=== PATIENT | female | born 1975 | race Two or more races ===

== ENCOUNTER 2025-02-15 06:44 | Day surgery (SDC) | payer MEDICAID ==
--- NOTE | 2025-02-10 12:12 | ELECTROCARDIOGRAPH REPORT ---
[facility] Date: 2025-02-10 Test Time: 12:10:40 Pat Name: ORA COOPER Department: [facility]-PRE-OP Patient ID: [facility]-[id number] Room: Gender: F Hotel Maintenance Worker: : 1975 Requested By: COSTA ZAMORA Order Number: [id number] Reading MD: Dr. CHANTELL Fuentes Measurements Intervals [place] Rate: 71 P: 36 IN: 138 QRS: 61 QRSD: 84 T: 33 QT: 373 QTc: 406 Interpretive Statements Sinus rhythm Electronically Signed On 02-10-2025 16:02:[address] CHANTELL Fuentes Please click the below link to view image of tracing.
[2025-02-10 12:33] LABS: MEAN PLATELET VOLUME 8.2 FL (7.4-10.4); PRE OP HEMATOCRIT 39.4 % (35.0-45.0); PRE OP HEMOGLOBIN 13.4 g/dL (12.0-16.0); PRE OP PLATELET COUNT 268 X10'3 (140-440); PRE OP WHITE BLOOD COUNT 5.4 10'3 (4.8-10.8); RED CELL DISTRIBUTION WIDTH 12.6 % (11.5-14.5)
[2025-02-10 12:44] LABS: CREATININE 0.62 MG/DL (0.40-0.90); PRE OP ALT 26 U/L (30-65); PRE OP ANION GAP 4 (8-16); PRE OP AST 13 U/L (10-37); PRE OP BILIRUB, TOTAL 0.6 MG/DL (0.0-1.0); PRE OP GLUCOSE 94 MG/DL (70-104); PRE OP POTASSIUM 3.9 MMOL/L (3.4-5.1); PRE OP SODIUM 141 MMOL/L (135-145); TOTAL CARBON DIOXIDE 29.8 MMOL/L (24-32); eGFR > 90 ML/MIN
[~2025-02-15] VITALS: Ht 157.5 cm; Wt 66.4 kg
[2025-02-15] VITALS (10 sets, daily range): BP systolic 136–163; BP diastolic 80–94; PULSE 72–105; RESP 10–17; TEMP 97.4; O2SAT 96–100
[2025-02-15] MEDS: ceFAZolin 2gm/dext,iso 50mL 50 ML IV ONE (05:30)
[~2025-02-15 06:44] MED LIST: CETI10CA PO; LORA-268 PO; OMEP40CA21 PO
[2025-02-15] MEDS ORDERED: LIDOcaine 1% 30ml preserv. free vial ONE (07:05)
[2025-02-15] MEDS ORDERED: BUPIVAcaine 2.5mg/ml inj 50ml vial (contains preservative) ONE (07:06)
[2025-02-15] MEDS ORDERED: methylene blue (5mg/ml) 50mg/10ml ampul IV ONE (07:07)
[2025-02-15] MEDS ORDERED: BUPIVACAINE liposomal/PF 13.3 MG/ML 10mL vial IM ONE (07:07)
[2025-02-15] MEDS: ringers solution, lacted 1,000 ML IV SCH (07:22)
[2025-02-15] MEDS ORDERED: BUPIVAcaine/PF 2.5mg/ml (0.25%) 10ml vial ONE (07:25)
[2025-02-15] MEDS ORDERED: midazolam 1 mg/ML 2ml injection ONE (08:29)
[2025-02-15] MEDS ORDERED: fentaNYL /PF 50mcg/ml 5ml ampule ONE (08:29)
[2025-02-15] MEDS ORDERED: labetalol 20mg/4ml (5mg/ml) syringe IV PRN (08:35)
[2025-02-15] MEDS ORDERED: ringers solution, lacted 1,000 ML IV SCH (08:35)
[2025-02-15] MEDS ORDERED: HYDROmorphone/PF 0.2 MG/ML SYRINGE IV PRN ×2 (08:35)
[2025-02-15] MEDS ORDERED: hydrALAZINE 20mg/ml inj. IV PRN (08:35)
[2025-02-15] MEDS ORDERED: LIDOcaine 2% (20mg/ml) 5ml vial ONE (08:53)
[2025-02-15] MEDS ORDERED: dexamethasone sod phosphate 4mg/ml inj. ONE (08:53)
[2025-02-15] MEDS ORDERED: ePHEDrine 50MG/ML INJ. ONE (08:53)
[2025-02-15] MEDS ORDERED: ondansetron/PF 4mg/2ml inj ONE (08:53)
[2025-02-15] MEDS ORDERED: 0.9 % SODIUM CHLORIDE 10 ML VIAL ONE (08:53)
[2025-02-15] MEDS ORDERED: propofol inj 20 ML IV ONE (08:54)
[2025-02-15] MEDS: methylene blue (5mg/ml) 50mg/10ml ampul IV ONE (10:30)
[2025-02-15] MEDS: LIDOcaine 1% 30ml preserv. free vial IJ ONE (10:30)
[2025-02-15] MEDS: BUPIVAcaine/PF 2.5mg/ml (0.25%) 10ml vial IJ ONE (10:31)
[2025-02-15] MEDS: BUPIVACAINE liposomal/PF 13.3 MG/ML 10mL vial IM ONE (10:31)
[2025-02-15] MEDS: morphine 4 MG/ML inj SYRINge IV PRN (10:41)
--- NOTE | 2025-02-15 10:47 | OPERATIVE REPORT ---
Operative Report Providers to CC: COSTA ZAMORA DO ~ Date of Procedure: Feb 15, 2025 Pre-Operative Diagnosis: Left breast ductal carcinoma in Situ Post-Operative Diagnosis SAME as PRE-Op Procedure Performed 1.Left breast wireless (pintuition) localized lumpectomy 2.left axillary sentinel lymph node biopsy 3. Reading of specimen radiograph Surgeon: Dr. Costa Zamora [employer] technical sales support manager Anesthesiologist: Guerline Alexander Type of Anesthesia: General Findings: Left breast with two markers identified on the specimen radiograph, the marker and tracker and two axillary sentinel lymph nodes Complications None Prosthetics\Implants used: None Estimated Blood Loss: Less than 15 mL Specimen Removed: 1. Left breast wireless localized lumpectomy suture marked short superior, long lateral, double deep 2. Left axillary sentinel lymph node #1 Hot and blue 1402 3. Left axillary sentinel lymph node #2. Hot and blue 677 Description of Procedure: Georgina is a 50-year-old female who was diagnosed with ductal carcinoma in Situ with an associated mass. She was seen and evaluated by myself in the office. She was referred by Dr. Ok Francisco. She had a suspicious lymph node for which an ultrasound-guided core needle biopsy revealed a benign node. We decided to move forward with a sentinel lymph node biopsy because she had an associated mass with a ductal carcinoma in Situ diagnosis. Informed consent was obtained. She had the nuclear medicine injection yesterday evening. She was seen and evaluated in the preoperative holding area by myself and the anesthesiologist. I marked the left breast with my initials. She was taken to the OR and placed on the table in supine position with the arms extended. He had an IV in place, SCDs to lower extremities, and antibiotics hanging at the bedside administered prior to the cut of surgery. General anesthesia was administered with an LMA. I scanned the left breast with the pintuition probe and marked the upper outer quadrant with my marking pen. The tumor is located between 12 30 and 1:00 4 cm from the nipple. I scanned the breast and the axilla and a hot signal was noted in the axillary space and I also marked at with the marking pen. A time-out was performed and agreed upon. 1% lidocaine was injected at both proposed incision sites of the breast and left axilla. My incision was made with a 10 blade just inferior to the marked site. I extended into the deep dermal layer with the cutting on the cautery. Mckenna retractors were placed on the edges of the incision as I dissected deep to the anterior flap. The probe was used to identify the signal and guide my dissection. During my dissection I used the probe to guide the dissection c ircumferentially and around the signal. I excised the deep margin and at some point there was visible implant without any damage. The specimen was removed and oriented with short stitch superior, long suture lateral, double suture deep. It was placed in the specimen radiograph and the tracker and marker were identified in the central aspect of the specimen. The cavity was copiously irrigated and hemostasis was achieved with Bovie electrocautery I reapproximated the capsule with 3-0 Vicryl gretchen suture. I turned my attention to the left axilla. The incision was made after injection of 1% lidocaine in the lower axillary space. I extended through the deep dermal layer with the cutting on the cautery and used the Mckenna retractors for visualization. The gamma probe was used to identify the hot signal as I dissected through the axillary fascia. I switched to Hutchins retractors and there was a hot spot that was identified. I grafts it with a tonsil clamp. A completely excised and removed from the cavity via LigaSure. The hot and blue lymph node had a count of 1407 who was placed on the specimen radiograph board and the Dragon fly marker was identified in the lymph node. An additional 2nd lymph node was identified. It was excised in the same fashion. The count was 677, it was hot and blue as the 2nd lymph node of the left axilla. Both lymph nodes were placed in formalin in separate containers. The specimen had also been placed in formalin in a separate container as well. All specimens were sent to pathology. The cavity was irrigated after no additional adequate activity was identified in the left axilla. Hemostasis was achieved with Bovie electrocautery. The axillary fascia was approximated with 3-0 Vicryl suture. The deep dermal layer was approximated 3-0 Vicryl suture. The skin was closed with a 2-0 Stratafix. The breast cavity was approximated with 3-0 gretchen Vicryl suture after copious irrigation hemostasis was achieved. The skin was closed with 3-0 Vicryl suture and the Stratafix for the dermal layer. The skin was cleaned and 0.25% Marcaine mixed with Exparel was injected at both sites. The Prineo Dermabond system was applied to the incision and Dermabond was applied to the axillary incision. Patient tolerated procedure well was taken to recovery in stable condition after sterile dressings were applied and a breast binder. She tolerated the procedure well without any complications. Counts repoted as correct: Yes COSTA ZAMORA DO Feb 15, 2025 10:47
[2025-02-15] MEDS: acetaminophen 1,000mg/100ml IV 100 ML IV PRN (10:59)
[2025-02-15] MEDS: ondansetron/PF 4mg/2ml inj IV PRN (11:17)
[2025-02-15] MEDS: HYDROcodone/acetaminophen 5mg/325mg tablet PO STA (11:40)
== END 2025-02-15 11:28 | disposition home or self-care (01) ==
LOC: PAS 06:44
PROVIDERS: ATTEND Surgery
DX: D05.12 Intraductal carcinoma in situ of left breast (principal); E11.9 Type 2 diabetes mellitus without complications; J45.909 Unspecified asthma, uncomplicated; F41.9 Anxiety disorder, unspecified; G47.30 Sleep apnea, unspecified; I25.2 Old myocardial infarction; Z79.899 Other long term (current) drug therapy; Z90.49 Acquired absence of other specified parts of digestive tract; Z98.890 Other specified postprocedural states
CPT/HCPCS: 19301; 36415; 38525; 76098; 80053; 82948; 85025; 93005; J0131; J0666; J1100; J2003; J2250; J2270; J2405; J2704; J3010; J3490; J7030; J7120; Q9968; Z7506; Z7508; Z7512; A4215; A4618; A6253; A6258; A6446; A7000